=== PATIENT | female | born 1990 | race Caucasian/White ===

== ENCOUNTER 2019-07-15 06:41 | Emergency (ER) | payer OTHER ==
[~2019-07-15] VITALS: Ht 167.6 cm; Wt 73.9 kg
[~2019-07-15 06:41] MED LIST: [UNRECOGNIZED DRUG - CODE] PO
--- NOTE | 2019-07-15 06:46 | NUR ---
PT AMBULATED TO ER BED 07
--- NOTE | 2019-07-15 06:50 | NUR ---
28/F PRESENTED TO ED WITH C/O LEFT SHOULDER PAIN X 2 DAYS, DENIES TRAUMA OR INJURY. 08/03 PAIN. DESCRIBED SHARP. DENIES PMH, RX AND ALLERGIES. NO SIGNS OF DISTRESS. PT CHANGED INTO GOWN. URINE CUP PROVIDED. WILL CONTINUE TO MONITOR.
[2019-07-15 06:53] VITALS: BP 134/77
--- NOTE | 2019-07-15 07:11 | NUR ---
GAVE REPORT TO PATRICK HERNANDEZ. PT IN STABLE CONDITION
--- NOTE | 2019-07-15 07:38 | NUR ---
XRAY AT BEDSIDE-PT TO XRAY VIA W/C WITH [employer] [id number]
[2019-07-15] MEDS ORDERED: KETOROLAC 30 MG/ML VIAL IM ONE (08:05)
--- NOTE | 2019-07-15 09:16 | NUR ---
PT RESTING IN BED, LOOKING AT CELLPHONE. STATES TORADOL WAS EFFECTIVE, PAIN IS NOW DECREASED TO 4/10.
--- NOTE | 2019-07-15 09:52 | NUR ---
Patient discharged with v/s stable. Written and verbal after care instructions given and explained. Patient alert, oriented and verbalized understanding of instructions. Ambulatory with steady gait. All questions addressed prior to discharge. ID band removed. Patient advised to follow up with PMD. Rx of ACETAMINOPHEN AND DIAZEPAM given. Patient educated on indication of medication including possible reaction and side effects. Opportunity to ask questions provided and answered.
[2019-07-15 09:53] VITALS: BP 110/70
== END 2019-07-15 09:52 | disposition home or self-care (01) ==
LOC: MED 06:41
DX: M54.12 Radiculopathy, cervical region (principal); Z79.899 Other long term (current) drug therapy
CPT/HCPCS: 72050; 81002; 81025; 96372; 99283; J1885

== ENCOUNTER 2020-05-20 22:35 | Emergency (ER) | payer OTHER ==
[~2020-05-20] VITALS: Ht 170.2 cm; Wt 74.8 kg
[2020-05-20 22:48] VITALS: BP 110/73
[2020-05-20 23:16] LABS: APPEARANCE,URINE CLOUDY (CLEAR); BILIRUBIN,URINE NEGATIVE (NEGATIVE); BLOOD, URINE TRACE-I (NEGATIVE); COLOR,URINE YELLOW (YELLOW); LEUKOCYTE ESTERASE ,URINE NEGATIVE (NEGATIVE); NITRITE, URINE NEGATIVE (NEGATIVE); UGLUCOSE NEGATIVE (NEGATIVE)
[2020-05-20 23:34] LABS: WBC,URINE 20-60 /HPF (0-5)
[2020-05-20] MEDS: cephALEXin 500 MG CAP PO ONE (23:36)
[2020-05-20] MEDS: PHENAZOPYRIDINE 100 MG TAB PO ONE (23:36)
[2020-05-20 23:57] VITALS: BP 110/73
== END 2020-05-20 23:57 | disposition home or self-care (01) ==
LOC: MED 22:35
DX: N12 Tubulo-interstitial nephritis, not specified as acute or chronic (principal); Z79.899 Other long term (current) drug therapy
CPT/HCPCS: 81001; 81025; 87086; 99283

== ENCOUNTER 2020-08-17 05:04 | Emergency (ER) | payer OTHER ==
[~2020-08-17] VITALS: Ht 170.2 cm; Wt 78.0 kg
--- NOTE | 2020-08-17 05:09 | NUR ---
PT AMBULATED TO BED 07.
--- NOTE | 2020-08-17 05:10 | NUR ---
URINE COLLECTED AND SENT TO LAB
--- NOTE | 2020-08-17 05:11 | NUR ---
29 Y/O FEMALE BIB SELF FOR C/O URINARY BURNING AND LOWER PELVIC PAIN 9/10 X 1 DAY. PT STATES SHE TOOK IBUPROFEN 500 MG AT 2300. ABD SOFT, NON TENDER. DENIES N/V, DIARRHEAR, OR CONSTIPATION. MEDHX: DENIES NKA
[2020-08-17 05:13] VITALS: BP 124/86
--- NOTE | 2020-08-17 05:15 | NUR ---
PT AMBUALTED FROM RESTROOM TO BED 7 WITH STEADY GAIT. UA SAMPLE PROVIDED.
--- NOTE | 2020-08-17 05:23 | NUR ---
ERMD AT BEDSIDE EVALUATING
[2020-08-17] MEDS ORDERED: KETOROLAC 30 MG/ML VIAL IM ONE (05:30)
[2020-08-17] MEDS ORDERED: cefTRIAXone 1,000 MG in LIDOCAINE MPF 1% 2.1 ML IM ONE (05:30)
[2020-08-17] MEDS ORDERED: LIDOCAINE MPF 1% 5 ML ONE (05:44)
[2020-08-17] MEDS ORDERED: cefTRIAXone 1,000 MG VIAL ONE (05:44)
[2020-08-17 06:20] LABS: APPEARANCE,URINE HAZY (CLEAR); BILIRUBIN,URINE NEGATIVE (NEGATIVE); BLOOD, URINE 3+ (NEGATIVE); COLOR,URINE YELLOW (YELLOW); LEUKOCYTE ESTERASE ,URINE 2+ (NEGATIVE); NITRITE, URINE POSITIVE (NEGATIVE); UGLUCOSE NEGATIVE (NEGATIVE)
[2020-08-17 06:28] VITALS: BP 124/86
--- NOTE | 2020-08-17 06:28 | NUR ---
Patient discharged with v/s stable. Written and verbal after care instructions given and explained. Patient alert, oriented and verbalized understanding of instructions. Ambulatory with steady gait. All questions addressed prior to discharge. ID band removed. Patient advised to follow up with PMD. Rx of NITROFURANTOIN, PYRIDIUM given. Patient educated on indication of medication including possible reaction and side effects. Opportunity to ask questions provided and answered.
[2020-08-17 06:52] LABS: RBC,URINE 20-50 /HPF (0-5); WBC,URINE 20-60 /HPF (0-5)
== END 2020-08-17 06:28 | disposition home or self-care (01) ==
LOC: MED 05:04
DX: N39.0 Urinary tract infection, site not specified (principal); Z79.899 Other long term (current) drug therapy; Z71.6 Tobacco abuse counseling
CPT/HCPCS: 81001; 81025; 87086; 96372; 99284; J0696; J1885; J2001

== ENCOUNTER 2020-10-25 20:16 | Emergency (ER) | payer OTHER ==
[~2020-10-25] VITALS: Ht 170.2 cm; Wt 73.9 kg
[2020-10-25 20:34] VITALS: BP 122/65
--- NOTE | 2020-10-25 21:21 | NUR ---
ERMD EVALUATING PATIENT IN TENT.
--- NOTE | 2020-10-25 21:37 | NUR ---
ERMD EVALUATED, TREATED, AND D/C PATIENT. NO NURSING INTERVENTION NEEDED.
[2020-10-25 21:38] VITALS: BP 118/78
--- NOTE | 2020-10-25 21:38 | NUR ---
Patient discharged with v/s stable. Written and verbal after care instructions given and explained. Patient alert, oriented and verbalized understanding of instructions. Ambulatory with steady gait. All questions addressed prior to discharge. ID band removed. Patient advised to follow up with PMD. Rx of CODEINE/PROMETHAZINE given. Patient educated on indication of medication including possible reaction and side effects. Opportunity to ask questions provided and answered.
== END 2020-10-25 21:38 | disposition home or self-care (01) ==
LOC: MED 20:16
DX: U07.1 COVID-19 (principal)
CPT/HCPCS: 99283

== ENCOUNTER 2021-08-31 18:49 | Emergency (ER) | payer OTHER ==
[~2021-08-31] VITALS: Ht 170.2 cm; Wt 68.5 kg
[2021-08-31 19:04] VITALS: BP 111/77
--- NOTE | 2021-08-31 19:30 | NUR ---
30 YO F BIB SELF WITH C/C OF SPOTTING FOR 2WKS AND 7/10 RUQ, RLQ AND PELVIC SHARP PAIN X1WK. STATES SHE WENT TO URGENT CARE 3DAYS AGO, WAS TOLD TO COME IN IF SYMPTOMS CONT. +WEAK. DENIES VAGINAL ODOR, ITCHING, AND DISCHARGE OTHER THAN SPOTTING. DENIES N/V/D, SOB AND FEVER. STATES SHE HAS BEEN EATING LESS. BOWEL SOUNDS ACTIVE X4. TENDER TO TOUCH. ALL NEEDS MET AT THIS TIME. DENIES HX, RX AND ALLERG LMP: 08/19 HAS BEEN BLEEDING SINCE THEN Addendum: 08/31/21 at 2052 by MED 30 YO F BIB SELF WITH C/C OF SPOTTING FOR 2WKS AND 7/10 RUQ, RLQ AND PELVIC SHARP PAIN X1WK. STATES SHE WENT TO URGENT CARE 3DAYS AGO, WAS TOLD TO COME IN IF SYMPTOMS CONT. +WEAK. DENIES VAGINAL ODOR, ITCHING, AND DISCHARGE OTHER THAN SPOTTING. DENIES N/V/D, SOB AND FEVER. STATES SHE HAS BEEN EATING LESS. BOWEL SOUNDS ACTIVE X4. TENDER TO TOUCH. ALL NEEDS MET AT THIS TIME. HX:OVARIAN CYSTS DENIES RX AND ALLERG LMP: 08/19 HAS BEEN BLEEDING SINCE THEN
--- NOTE | 2021-08-31 19:34 | NUR ---
LAB AT BEDSIDE.
[2021-08-31 19:46] LABS: BASOPHILS % (AUTO) 0.3 % (0.0-2.0); EOSINOPHILS # (AUTO) 0.1 K/uL (0-0.4); EOSINOPHILS % (AUTO) 1.1 % (0.0-4.0); HEMATOCRIT 37.8 % (36-48); HEMOGLOBIN 12.4 g/dL (12.0-16.0); LYMPHOCYTES # (AUTO) 1.8 K/uL (2.5-16.5); LYMPHOCYTES % (AUTO) 33.7 % (20.5-51.1); MEAN CORPUSCULAR HEMOGLOBIN 27 pg (27-31); MEAN CORPUSCULAR HGB CONC 33 g/dL (33-37); MEAN CORPUSCULAR VOLUME 81.5 fL (80-94); MONOCYTES # (AUTO) 0.5 K/uL (0.8-1.0); NEUTROPHILS % (AUTO) 55.9 % (42.2-75.2); PLATELET COUNT (AUTO) 234 K/uL (140-450); RED BLOOD CELL COUNT(AUTO) 4.63 MIL/uL (4.20-5.40); RED CELL DISTRIBUTION WIDTH 15.2 % (11.6-13.7); WHITE BLOOD COUNT (AUTO) 5.4 K/uL (4.8-10.8)
[2021-08-31 19:56] LABS: CARBON DIOXIDE 25.2 mmol/L (21-32); CREATININE 0.7 mg/dL (0.6-1.3); POTASSIUM 4.2 mmol/L (3.5-5.1)
--- NOTE | 2021-08-31 20:21 | NUR ---
PT STATED SHE HAS A HISTORY OF OVARIAN CYSTS, ERMD UPDATED. Addendum: 08/31/21 at 2021 by MEDGEMMA PT PLACED IN GOWN AND GIVEN BLANKET.
[2021-08-31] MEDS ORDERED: KETOROLAC 60 MG/2 ML VIAL IM ONE (21:15)
[2021-08-31] MEDS ORDERED: MEDR10TA PO (21:23)
[2021-08-31] MEDS ORDERED: IBUP-2213 PO (21:23)
[2021-08-31] MEDS ORDERED: ACET-8386 PO (21:23)
[2021-08-31 21:46] VITALS: BP 107/73
--- NOTE | 2021-08-31 21:46 | NUR ---
Patient discharged with v/s stable. Written and verbal after care instructions given and explained. Patient alert, oriented and verbalized understanding of instructions. Ambulatory with steady gait. All questions addressed prior to discharge. ID band removed. Patient advised to follow up with PMD. Rx of PROVERA, NORCO, PROVERA given. Patient educated on indication of medication including possible reaction and side effects. Opportunity to ask questions provided and answered.
== END 2021-08-31 21:46 | disposition home or self-care (01) ==
LOC: MED 18:49
DX: N93.8 Other specified abnormal uterine and vaginal bleeding (principal); R42 Dizziness and giddiness; Z79.899 Other long term (current) drug therapy
CPT/HCPCS: 36415; 80048; 81002; 81025; 85025; 96372; 99283; J1885

== ENCOUNTER 2021-09-03 18:00 | Emergency (ER) | payer OTHER ==
[~2021-09-03] VITALS: Ht 170.2 cm; Wt 67.6 kg
[~2021-09-03 18:00] MED LIST changes: +ACET-8386 PO; +IBUP-2213 PO; +MEDR10TA PO
[2021-09-03 18:06] VITALS: BP 129/73
--- NOTE | 2021-09-03 18:12 | NUR ---
PT SENT TO LOBBY
[2021-09-03 20:29] LABS: BASOPHILS % (AUTO) 0.3 % (0.0-2.0); EOSINOPHILS # (AUTO) 0.1 K/uL (0-0.4); EOSINOPHILS % (AUTO) 1.6 % (0.0-4.0); HEMATOCRIT 35.8 % (36-48); HEMOGLOBIN 11.8 g/dL (12.0-16.0); LYMPHOCYTES # (AUTO) 1.7 K/uL (2.5-16.5); LYMPHOCYTES % (AUTO) 31.6 % (20.5-51.1); MEAN CORPUSCULAR HEMOGLOBIN 27 pg (27-31); MEAN CORPUSCULAR HGB CONC 33 g/dL (33-37); MONOCYTES # (AUTO) 0.6 K/uL (0.8-1.0); MONOCYTES % (AUTO) 11.6 % (1.7-9.3); NEUTROPHILS # (AUTO) 2.9 K/uL (1.8-7.7); NEUTROPHILS % (AUTO) 54.9 % (42.2-75.2); PLATELET COUNT (AUTO) 217 K/uL (140-450); RED BLOOD CELL COUNT(AUTO) 4.37 MIL/uL (4.20-5.40); RED CELL DISTRIBUTION WIDTH 15.3 % (11.6-13.7); WHITE BLOOD COUNT (AUTO) 5.2 K/uL (4.8-10.8)
--- NOTE | 2021-09-03 20:37 | NUR ---
Radha leon in [facility] - 09/03/21 at 2107 by BENJIE patient ambulated to bed 4 and changed into a gown
--- NOTE | 2021-09-03 20:37 | NUR ---
pt ambulated to bed 04 with steady gait.
[2021-09-03 20:47] LABS: ALBUMIN 4.1 g/dL (3.4-5.0); ANION GAP 13.4 (8-16); CARBON DIOXIDE 27.8 mmol/L (21-32); CREATININE 0.8 mg/dL (0.6-1.3); POTASSIUM 4.2 mmol/L (3.5-5.1); TOTAL BILIRUBIN 0.4 mg/dL (0.0-1.0)
--- NOTE | 2021-09-03 21:05 | NUR ---
patient to CT via wheelchair
[2021-09-03] MEDS ORDERED: IBUP-2213 PO (22:26)
[2021-09-03 22:40] LABS: APPEARANCE,URINE CLEAR (CLEAR); BILIRUBIN,URINE NEGATIVE (NEGATIVE); BLOOD, URINE 2+ (NEGATIVE); COLOR,URINE YELLOW (YELLOW); LEUKOCYTE ESTERASE ,URINE NEGATIVE (NEGATIVE); NITRITE, URINE NEGATIVE (NEGATIVE); UGLUCOSE NEGATIVE (NEGATIVE)
--- NOTE | 2021-09-03 22:40 | NUR ---
IV removed, catheter intact and site benign. Applied folded 4x4 gauze and tape to stop bleeding.
[2021-09-03 22:45] VITALS: BP 121/73
[2021-09-03 22:45] LABS: WBC,URINE 0-5 /HPF (0-5)
== END 2021-09-03 22:45 | disposition home or self-care (01) ==
LOC: MED 18:00
DX: N93.9 Abnormal uterine and vaginal bleeding, unspecified (principal); D64.9 Anemia, unspecified; Z79.899 Other long term (current) drug therapy
CPT/HCPCS: 36415; 74177; 76856; 80053; 81001; 84703; 85025; 86900; 86901; 87086; 93976; 99285; Q0092; Q9967

== ENCOUNTER 2022-06-05 17:51 | Emergency (ER) | payer OTHER ==
[~2022-06-05] VITALS: Ht 170.2 cm; Wt 65.9 kg
[2022-06-05 17:59] VITALS: BP 115/68
[2022-06-05 19:01] LABS: BASOPHILS % (AUTO) 0.3 % (0.0-2.0); EOSINOPHILS # (AUTO) 0.1 K/uL (0-0.4); EOSINOPHILS % (AUTO) 1.2 % (0.0-4.0); HEMATOCRIT 36.4 % (36-48); HEMOGLOBIN 11.5 g/dL (12.0-16.0); LYMPHOCYTES # (AUTO) 1.8 K/uL (2.5-16.5); MEAN CORPUSCULAR HEMOGLOBIN 25 pg (27-31); MEAN CORPUSCULAR HGB CONC 32 g/dL (33-37); MEAN CORPUSCULAR VOLUME 78.1 fL (80-94); MONOCYTES # (AUTO) 0.5 K/uL (0.8-1.0); MONOCYTES % (AUTO) 10.2 % (1.7-9.3); NEUTROPHILS # (AUTO) 2.2 K/uL (1.8-7.7); NEUTROPHILS % (AUTO) 48.3 % (42.2-75.2); PLATELET COUNT (AUTO) 207 K/uL (140-450); RED BLOOD CELL COUNT(AUTO) 4.66 MIL/uL (4.20-5.40); RED CELL DISTRIBUTION WIDTH 15.7 % (11.6-13.7); WHITE BLOOD COUNT (AUTO) 4.5 K/uL (4.8-10.8)
[2022-06-05 19:23] LABS: ANION GAP 12.6 (8-16); CARBON DIOXIDE 27.1 mmol/L (21-32); CREATININE 0.8 mg/dL (0.6-1.3); POTASSIUM 4.7 mmol/L (3.5-5.1); TOTAL BILIRUBIN 0.4 mg/dL (0.0-1.0)
[2022-06-05 20:13] LABS: APPEARANCE,URINE CLEAR (CLEAR); BILIRUBIN,URINE NEGATIVE (NEGATIVE); BLOOD, URINE NEGATIVE (NEGATIVE); COLOR,URINE YELLOW (YELLOW); LEUKOCYTE ESTERASE ,URINE NEGATIVE (NEGATIVE); NITRITE, URINE NEGATIVE (NEGATIVE); UGLUCOSE NEGATIVE (NEGATIVE)
--- NOTE | 2022-06-05 21:29 | NUR ---
HAO samples obtained, handed to KATYA Klein at bedside.
[2022-06-05] MEDS ORDERED: KETOROLAC 30 MG/ML VIAL IM ONE (21:30)
[2022-06-05] MEDS ORDERED: ONDANSETRON 4 MG ODT PO ONE (21:30)
--- NOTE | 2022-06-05 21:50 | NUR ---
Patient went to CT via [facility].
[2022-06-05] MEDS ORDERED: ONDA-188 SL (23:02)
[2022-06-05 23:10] VITALS: BP 111/58
--- NOTE | 2022-06-05 23:10 | NUR ---
Patient discharged with v/s stable. Written and verbal after care instructions given. Patient alert, oriented and verbalized understanding of instructions. Ambulatory with steady gait. All questions addressed prior to discharge. ID band removed. Patient advised to follow up with PMD. Rx of ZOFRAN given. Opportunity to ask questions provided and answered.
--- NOTE | 2022-06-05 23:10 | NUR ---
Chart checked and completed.
== END 2022-06-05 23:10 | disposition home or self-care (01) ==
LOC: MED 17:51
DX: B34.9 Viral infection, unspecified (principal); Z20.822 Contact with and (suspected) exposure to COVID-19
CPT/HCPCS: 36415; 74176; 80053; 81003; 81025; 83690; 85025; 87426; 96372; 99284; J1885; Q0162

== ENCOUNTER 2022-08-18 15:37 | Emergency (ER) | payer OTHER ==
[~2022-08-18] VITALS: Ht 170.2 cm; Wt 66.2 kg
[~2022-08-18 15:37] MED LIST changes: +ONDA-188 SL
[2022-08-18 15:55] VITALS: BP 113/77
[2022-08-18 17:07] LABS: BASOPHILS % (AUTO) 0.5 % (0.0-2.0); EOSINOPHILS # (AUTO) 0.1 K/uL (0-0.4); EOSINOPHILS % (AUTO) 1.2 % (0.0-4.0); HEMATOCRIT 34.2 % (36-48); HEMOGLOBIN 11.3 g/dL (12.0-16.0); LYMPHOCYTES # (AUTO) 2.1 K/uL (2.5-16.5); LYMPHOCYTES % (AUTO) 40.5 % (20.5-51.1); MEAN CORPUSCULAR HEMOGLOBIN 25 pg (27-31); MEAN CORPUSCULAR HGB CONC 33 g/dL (33-37); MEAN CORPUSCULAR VOLUME 76.1 fL (80-94); MONOCYTES # (AUTO) 0.5 K/uL (0.8-1.0); MONOCYTES % (AUTO) 9.1 % (1.7-9.3); NEUTROPHILS # (AUTO) 2.6 K/uL (1.8-7.7); NEUTROPHILS % (AUTO) 48.7 % (42.2-75.2); PLATELET COUNT (AUTO) 233 K/uL (140-450); RED BLOOD CELL COUNT(AUTO) 4.48 MIL/uL (4.20-5.40); RED CELL DISTRIBUTION WIDTH 16.1 % (11.6-13.7); WHITE BLOOD COUNT (AUTO) 5.3 K/uL (4.8-10.8)
[2022-08-18 17:26] LABS: APPEARANCE,URINE CLEAR (CLEAR); BILIRUBIN,URINE NEGATIVE (NEGATIVE); BLOOD, URINE TRACE-I (NEGATIVE); COLOR,URINE YELLOW (YELLOW); LEUKOCYTE ESTERASE ,URINE NEGATIVE (NEGATIVE); NITRITE, URINE NEGATIVE (NEGATIVE); PH,URINE 6.5 (5.0-9.0); UGLUCOSE NEGATIVE (NEGATIVE)
[2022-08-18 17:28] LABS: ALBUMIN 3.9 g/dL (3.4-5.0); ANION GAP 14.7 (8-16); CARBON DIOXIDE 24.5 mmol/L (21-32); CREATININE 0.7 mg/dL (0.6-1.3); POTASSIUM 4.2 mmol/L (3.5-5.1); TOTAL BILIRUBIN 0.5 mg/dL (0.0-1.0)
--- NOTE | 2022-08-18 17:30 | NUR ---
31y/o female presents to ED with c/o vaginal bleeding [id number]. Pt reports 3 episodes of vaginal bleeding this month, saturating 1pad/2hrs, 8/10 pressure like pain to lower abdomen for 3 days, urinary burning and weakness. Pt reports taking ibuprofenf for pain with relief. Pt denies N/V/D, fevers, chills, and cold symptoms. Pt in gown, bed set to lowest position, side rails x1.
[2022-08-18 17:48] LABS: RBC,URINE 0-5 /HPF (0-5); WBC,URINE 0-5 /HPF (0-5)
[2022-08-18] MEDS ORDERED: KETOROLAC 15 MG/ML VIAL IM ONE (18:10)
[2022-08-18] MEDS ORDERED: MEDR10TA PO (19:01)
[2022-08-18] MEDS ORDERED: IBUP-2213 PO (19:01)
--- NOTE | 2022-08-18 19:11 | NUR ---
Patient discharged with v/s stable. Written and verbal after care instructions about pelvic pain, ovarian cyst, dysmenorrhea, and dysfunctional uterine bleeding given and explained. Patient alert, oriented and verbalized understanding of instructions. Ambulatory with steady gait. All questions addressed prior to discharge. ID band removed. Patient advised to follow up with PMD. Rx of Ibuprofen, Provera given. Patient educated on indication of medication including possible reaction and side effects. Opportunity to ask questions provided and answered.
[2022-08-18 19:12] VITALS: BP 113/78
== END 2022-08-18 19:11 | disposition home or self-care (01) ==
LOC: MED 15:37
DX: N83.292 Other ovarian cyst, left side (principal); N93.8 Other specified abnormal uterine and vaginal bleeding; D64.9 Anemia, unspecified; R10.2 Pelvic and perineal pain; R42 Dizziness and giddiness; R51.9 Headache, unspecified; Z79.899 Other long term (current) drug therapy
CPT/HCPCS: 36415; 76830; 80053; 81001; 81025; 85025; 96372; 99284; J1885; Q0092

== ENCOUNTER 2022-08-22 18:45 | Emergency (ER) | payer OTHER ==
[~2022-08-22] VITALS: Ht 170.2 cm; Wt 67.1 kg
[2022-08-22 18:47] VITALS: BP 116/75
--- NOTE | 2022-08-22 19:00 | NUR ---
PATIENT AMBULATED TO BED 11.
[2022-08-22] MEDS ORDERED: ACETAMINOPHEN 325 MG TAB PO ONE (19:20)
[2022-08-22 19:32] LABS: BASOPHILS % (AUTO) 0.5 % (0.0-2.0); EOSINOPHILS # (AUTO) 0.1 K/uL (0-0.4); EOSINOPHILS % (AUTO) 1.6 % (0.0-4.0); HEMATOCRIT 32.2 % (36-48); HEMOGLOBIN 10.5 g/dL (12.0-16.0); LYMPHOCYTES % (AUTO) 41.7 % (20.5-51.1); MEAN CORPUSCULAR HEMOGLOBIN 25 pg (27-31); MEAN CORPUSCULAR HGB CONC 33 g/dL (33-37); MEAN CORPUSCULAR VOLUME 76.8 fL (80-94); MONOCYTES # (AUTO) 0.6 K/uL (0.8-1.0); MONOCYTES % (AUTO) 12.9 % (1.7-9.3); NEUTROPHILS % (AUTO) 43.3 % (42.2-75.2); PLATELET COUNT (AUTO) 197 K/uL (140-450); RED BLOOD CELL COUNT(AUTO) 4.19 MIL/uL (4.20-5.40); WHITE BLOOD COUNT (AUTO) 4.7 K/uL (4.8-10.8)
--- NOTE | 2022-08-22 19:45 | NUR ---
Dr. Hill at patient bedside assessing patient.
[2022-08-22 19:48] LABS: ALBUMIN 3.4 g/dL (3.4-5.0); CARBON DIOXIDE 25.3 mmol/L (21-32); CREATININE 0.8 mg/dL (0.6-1.3); POTASSIUM 4.3 mmol/L (3.5-5.1); TOTAL BILIRUBIN 0.3 mg/dL (0.0-1.0)
--- NOTE | 2022-08-22 20:09 | NUR ---
Patient lying in bed, A/Ox4, chest rise and fall symmetrical, no s/s of distress.
--- NOTE | 2022-08-22 21:29 | NUR ---
Patient lying in bed, A/Ox4, chest rise and fall symmetrical, no s/s of distress.
[2022-08-22] MEDS ORDERED: KETOROLAC 30 MG/ML VIAL IM ONE (21:55)
[2022-08-22] MEDS ORDERED: ACET-10509 PO (21:58)
[2022-08-22 22:22] VITALS: BP 107/85
--- NOTE | 2022-08-22 22:23 | NUR ---
Patient discharged with v/s stable. Written and verbal after care instructions given and explained. Patient verbalized understanding. Ambulatory with steady gait. All questions addressed prior to discharge. Advised to follow up with PMD.
== END 2022-08-22 22:23 | disposition home or self-care (01) ==
LOC: MED 18:45
DX: N93.9 Abnormal uterine and vaginal bleeding, unspecified (principal)
CPT/HCPCS: 36415; 76856; 80053; 81002; 81025; 85025; 96372; 99284; J1885; Q0092

== ENCOUNTER 2022-10-13 09:03 | Day surgery (SDC) | payer OTHER ==
[~2022-10-13] VITALS: Ht 170.2 cm; Wt 66.2 kg
[~2022-10-13 09:03] MED LIST changes: +ACET-10509 PO; -ACET-8386 PO; +ACET-8905 PO
[2022-10-13] MEDS ORDERED: BUPIVACAINE-MPF 0.25% 30 ML VIAL INJ ONE (11:28)
[2022-10-13] MEDS ORDERED: SEVOFLURANE 250 ML BTL INH ONE (11:33)
[2022-10-13] MEDS ORDERED: ceFAZolin 2,000 MG VIAL ONE (11:33)
[2022-10-13] MEDS ORDERED: fentaNYL citrate 0.05 MG/ML VIAL ONE (11:52)
[2022-10-13] MEDS ORDERED: PROPOFOL 200 MG/20 ML VIAL IV ONE (12:02)
[2022-10-13] MEDS ORDERED: ONDANSETRON 4 MG/2 ML VIAL ONE (12:02)
[2022-10-13] MEDS ORDERED: KETOROLAC 30 MG/ML VIAL ONE (12:02)
[2022-10-13] MEDS ORDERED: ROCURONIUM 50 MG/5 ML VIAL IV ONE (12:02)
[2022-10-13] MEDS ORDERED: NEOSTIGMINE 1:1000 10 MG/10 ML VIAL ONE (12:40)
[2022-10-13] MEDS ORDERED: GLYCOPYRROLATE 0.2 MG/ML VIAL ONE ×4 (12:41)
[2022-10-13] MEDS ORDERED: LACTATED RINGERS 1,000 ML IV SCH (12:55)
[2022-10-13] MEDS ORDERED: METOCLOPRAMIDE 10 MG/2 ML INJ VIAL IVP PRN (12:56)
[2022-10-13] MEDS ORDERED: LABETALOL 20 MG/4 ML VIAL IVP PRN (12:56)
[2022-10-13] MEDS ORDERED: hydrALAZINE 20 MG/ML VIAL IVP PRN (12:57)
[2022-10-13] MEDS: HYDROmorphone 1 MG/ML AMP IVP PRN ×4 (13:00→13:30)
[2022-10-13] MEDS ORDERED: HYDROmorphone PFS 2 MG/ML SYR ONE (13:07)
== END 2022-10-13 14:56 | disposition home or self-care (01) ==
LOC: MMU 09:03 → MDS 09:03
PROVIDERS: ATTEND Obstetrics & Gynecology
DX: N83.202 Unspecified ovarian cyst, left side (principal); Z20.822 Contact with and (suspected) exposure to COVID-19
CPT/HCPCS: 58662; 87426; J1170; J1885; J2405; J2704; J2710; J3010; J3490; J7120; 88305

== ENCOUNTER 2023-05-27 17:33 | Emergency (ER) | payer OTHER ==
[~2023-05-27] VITALS: Ht 162.6 cm; Wt 64.9 kg
[2023-05-27 17:43] VITALS: BP 105/66; PULSE 91; RESP 16; TEMP 98.1; O2SAT 100
[2023-05-27 18:12] VITALS: BP 105/66; PULSE 91; RESP 16; TEMP 98.1; O2SAT 100
[2023-05-27] MEDS ORDERED: IBUP-2213 PO (19:56)
== END 2023-05-27 20:08 | disposition home or self-care (01) ==
LOC: MED 17:33
DX: R20.2 Paresthesia of skin (principal); Z79.899 Other long term (current) drug therapy
CPT/HCPCS: 73140; 99283

== ENCOUNTER 2024-05-11 20:03 | Emergency (ER) | payer OTHER ==
[~2024-05-11] VITALS: Ht 170.2 cm; Wt 77.1 kg
[2024-05-11 20:23] VITALS: BP 108/77; PULSE 80; RESP 16; TEMP 97.5; O2SAT 99
[2024-05-11] MEDS ORDERED: PRED20TA5 PO (22:24)
[2024-05-11] MEDS ORDERED: CETI-403 PO (22:24)
[2024-05-11] MEDS: predniSONE 20 MG TAB PO ONE (22:26)
== END 2024-05-11 22:29 | disposition home or self-care (01) ==
LOC: MED 20:03
DX: R21 Rash and other nonspecific skin eruption (principal); L29.9 Pruritus, unspecified; Z79.899 Other long term (current) drug therapy
CPT/HCPCS: 99283; J7512; Q0163